=== PATIENT | female | born 1960 | race Caucasian/White ===

== ENCOUNTER 2017-09-07 10:43 | Emergency (ER) | payer OTHER ==
[~2017-09-07] VITALS: Ht 165.1 cm; Wt 63.0 kg
[2017-09-07] MEDS ORDERED: NORCO 5/3251 TABLET PO (13:32)
[2017-09-07 14:01] VITALS: BP 127/83
== END 2017-09-07 14:25 | disposition home or self-care (01) ==
LOC: EME 10:43
DX: S93.05XA Dislocation of left ankle joint, initial encounter (principal); S82.852A Displaced trimalleolar fracture of left lower leg, initial encounter for closed fracture; X50.1XXA Overexertion from prolonged static or awkward postures, initial encounter; W17.81XA Fall down embankment (hill), initial encounter
CPT/HCPCS: 73600; J3010

== ENCOUNTER 2017-09-29 05:03 | Emergency (ER) | payer OTHER ==
[~2017-09-29] VITALS: Ht 165.1 cm; Wt 63.6 kg
[~2017-09-29 05:03] MED LIST: NORCO 5/3251 TABLET PO
[2017-09-29 06:35] VITALS: BP 120/88
== END 2017-09-29 06:39 | disposition home or self-care (01) ==
LOC: EME 05:03
DX: G43.909 Migraine, unspecified, not intractable, without status migrainosus (principal); E86.0 Dehydration
CPT/HCPCS: 99281; 99284; J1200; J2765; J7030